=== PATIENT | female | born 1955 | race Caucasian/White ===

== ENCOUNTER → 2024-06-15 | Outpatient (CLI) | payer MEDICARE, MEDICAID, SELFPAY ==
[2024-06-15 11:29] LABS: Basophils # (Auto) 0.1 Thou/mm3 (0.0-0.2); Basophils % (Auto) 1 % (0-2.5); Eosinophils # (Auto) 0.6 Thou/mm3 (0.0-0.5); Eosinophils % (Auto) 9 % (0-10); Hematocrit 34.6 % (36.0-46.0); Hemoglobin 11.3 g/dL (12.0-16.0); Immature Granulocytes % (Auto) 0 % (0-0); Immature Granulocytes Auto 0.02 Thou/mm3 (0.00-0.00); Lymphocytes % (Auto) 31 % (10-50); Mean Corpuscular HGB Conc 32.7 g/dl (31.0-37.0); Mean Corpuscular Volume 92 fL (80-100); Monocytes # (Auto) 0.7 Thou/mm3 (0.0-0.8); Monocytes % (Auto) 12 % (0-12); Neutrophils % (Auto) 47 % (37-80); Nucleated Red Blood Cell % 0 /100 WBC (0); Platelet Count 231 Thou/mm3 (140-440); RDW Standard Deviation 47.3 fL (36.4-46.3); Red Blood Count 3.77 Miln/mm3 (4.00-5.20); White Blood Count 6.4 Thou/mm3 (3.6-11.0)
[2024-06-15 11:58] LABS: Albumin, Serum 4.1 gm/dL (3.4-4.8); Anion Gap 7 (7-16); BUN/Creatinine Ratio 24 Ratio (12-20); Blood Urea Nitrogen 19 mg/dL (9-23); Calcium 9.3 mg/dL (8.3-10.6); Calcium (Corrected) 9.3 mg/dL (8.5-10.1); Carbon Dioxide 28.4 mMol/L (20.0-31.0); Chloride 105 mMol/L (98-107); Creatinine (Component) 0.8 mg/dL (0.6-1.3); Glucose 85 mg/dL (74-106); Osmolality,Calculated 280 (275-295); Phosphorous 3.6 mg/dL (2.4-5.1); Potassium 4.2 mMol/L (3.4-5.1); Sodium 140 mMol/L (136-145); eGFR > 60 See Note
[2024-06-15 12:28] LABS: Vitamin D 25 Hydroxy Total 25.3 ng/mL (7.3-40.2)
== END | disposition home or self-care (01) ==
LOC: COPL 10:03
PROVIDERS: PCP Physician Assistant; Referring Provider Internal Medicine; Visit Provider Internal Medicine
DX: I12.9 Hypertensive chronic kidney disease with stage 1 through stage 4 chronic kidney disease, or unspecified chronic kidney disease (principal); E11.22 Type 2 diabetes mellitus with diabetic chronic kidney disease; N18.2 Chronic kidney disease, stage 2 (mild); N39.0 Urinary tract infection, site not specified; R80.9 Proteinuria, unspecified
CPT/HCPCS: 36415; 80069; 82306; 85025

== ENCOUNTER → 2024-08-15 | Outpatient (CLI) | payer MEDICARE, MEDICAID, SELFPAY ==
--- NOTE | 2024-08-15 16:34 | XR_ITS ---
Examination: CT chest, without intravenous contrast. Sagittal and coronal 2-D reconstructions. Exam date and time: August 15, 2024 [address] chest October 15, 2023 INDICATIONS: Coughing one year, smoking history over 20 years, 2 mm pulmonary nodule right lower lobe on CT chest October 15, 2023 CTDI:vol (mGy) 11.3 DLP: (mGycm) 345 Technique: Multiple 3.0 mm axial sections of the chest to been obtained. Bone and lung density settings are obtained. Sagittal and coronal 2-D reconstructions have been obtained. Low dose protocols were performed. One or more of the following dose reduction techniques were used; automated exposure control, adjustment of the mA and/or KV according to patient size, use of iterative reconstruction technique. Findings: No thoracic aortic aneurysm dilatation Pulmonary artery segments are not enlarged Significant calcification left anterior descending coronary artery Pericardial effusion measuring up to 2 mm Mild enlargement cardiac contour No paratracheal tracheobronchial or bronchopulmonary adenopathy Diffuse moderate pulmonary fibrosis 6 mm pulmonary nodule right upper lobe image 94 3 mm pulmonary nodule right lower lobe image 152 No visualized liver or splenic lesion No pancreatic mass Kidneys partially visualized no hydronephrosis Moderate osteopenia IMPRESSION: Diffuse moderate pulmonary fibrosis 6 mm pulmonary nodule right upper lobe 3 mm pulmonary nodule right lower lobe, recommend continued 6 month follow-up CT chest without contrast
== END | disposition home or self-care (01) ==
LOC: CCTX 16:31
PROVIDERS: PCP Physician Assistant; Referring Provider Physician Assistant; Visit Provider Physician Assistant
DX: J84.10 Pulmonary fibrosis, unspecified (principal); R91.8 Other nonspecific abnormal finding of lung field
CPT/HCPCS: 71250

== ENCOUNTER 2024-12-02 14:04 | Emergency (ER) | payer MEDICARE, MEDICAID, SELFPAY ==
--- NOTE | 2024-12-02 14:13 | EKG_ITS ---
[facility] Test Date: 2024-12-02 Pat Name: JAYDE CHOWDHURY Department: Room: - Gender: Female Pheresis Specialist: : [id number] Requested By: Asaf Phipps Order Number: [id number] Reading MD: Asaf Phipps Measurements Intervals [place] Rate: 71 P: 57 ND: 201 QRS: 32 QRSD: 99 T: 51 QT: 365 QTc: 398 Interpretive Statements SINUS RHYTHM Compared to ECG 07/09/2023 14:44:21 No significant changes /store/S0/[id number].pdf
[2024-12-02 14:27] VITALS: BP 156/88; PULSE 73; RESP 18; TEMP 36.8; O2SAT 97; BMI 32.1
--- NOTE | 2024-12-02 14:33 | XR_ITS ---
Examination: PA lateral chest 2 views TECHNIQUE: Upright PA lateral chest 2 views Date and time: December 02, 2024 1543 hours Comparison August 03, 2023 INDICATIONS: Chest pain coughing 3 days. FINDINGS: Accentuation interstitial markings at the lung bases, consider pulmonary fibrosis, bronchitis, bronchiectasis Normal heart size Ectatic thoracic aorta. No pulmonary edema or lobar pneumonia Prominent osteopenia IMPRESSION: Suspicious for basilar pulmonary fibrosis versus bronchitis bronchiectasis
--- NOTE | 2024-12-02 14:37 | PD.EDCHEST ---
ED Chest Pain RME/HPI General Chief Complaint: Chest Pain Stated Complaint: Right side chest pain X 2 days, radiating Time Seen by Provider: 12/02/24 14:27 Source: patient Arrival date/time: 12/02/24 14:04 69-year-old female with a history of hypertension, hyperlipidemia, type 2 diabetes presents to the emergency room with a chief complaint of right sided sternal chest pain that radiates to her back x 2 days. Patient states she was lifting heavy objects yesterday. Mode of arrival: ambulatory Limitations: no limitations Related Data Home Medications ?Medication ?Instructions ?Recorded ?Confirmed escitalopram oxalate 20 mg tablet 20 mg PO DAILY ##0 08/03/12 09/04/23 atenolol 50 mg tablet 50 mg PO BID 06/14/20 09/04/23 metformin 500 mg tablet 500 mg PO BID 06/14/20 09/04/23 omeprazole 40 mg capsule,delayed 40 mg PO QDAY 06/14/20 09/04/23 release quetiapine 300 mg tablet 600 mg PO HS 06/14/20 09/04/23 vitamin B comp no.3-folic acid 1 1 tab PO QDAY 06/14/20 09/04/23 mg-vit C 60 mg-biotin 300 mcg tablet ([place]) atorvastatin 40 mg tablet 40 mg PO QDAY 09/13/20 09/04/23 zolpidem 10 mg tablet 10 mg PO HS 09/13/20 09/04/23 fenofibrate 54 mg tablet 54 mg PO QDAY 01/03/21 09/04/23 lisinopril 20 mg tablet 20 mg PO QDAY 01/03/21 09/04/23 ondansetron 4 mg disintegrating 4 mg PO Q6H PRN Nausea 01/03/21 09/04/23 tablet aripiprazole 2 mg tablet 2 mg PO QDAY 05/02/21 09/04/23 naratriptan 2.5 mg tablet 2.5 mg PO Q4H PRN Pain 05/02/21 09/04/23 estradiol 0.01% (0.1 mg/gram) 1 appful vaginal QDAY 06/11/23 09/04/23 vaginal cream (Estrace) nitrofurantoin 100 mg PO QDAY 06/11/23 09/04/23 monohydrate/macrocrystals 100 mg capsule (Macrobid) edoxaban 15 mg tablet 15 mg PO QDAY 09/04/23 09/04/23 Previous Rx's ?Medication ?Instructions ?Recorded amoxicillin 875 mg-potassium 1 tab PO BID #14 tabs 07/09/23 clavulanate 125 mg tablet azithromycin 250 mg tablet See Rx Instructions PO .COMPLEX #6 07/09/23 (Zithromax Z-Mann) tabs Allergies Allergy/AdvReac Type Severity Reaction Status Date / Time buspirone Allergy Severe VOMITING Verified 12/02/24 14:12 fluoxetine Allergy Severe HEADACHE Verified 12/02/24 14:12 paroxetine Allergy Severe FELLS Verified 12/02/24 14:12 WORSE ON THE DRUG pseudoephedrine Allergy Severe ANXIETY Verified 12/02/24 14:12 sertraline Allergy Severe VOMITING, Verified 12/02/24 14:12 RASH, HEADACHE sulfamethoxazole Allergy Severe Itching Verified 12/02/24 14:12 trimethoprim Allergy Severe Itching Verified 12/02/24 14:12 Review of Systems Review of Systems Systems Reviewed: All systems reviewed, normal except as documented Constitutional Constitutional: Reports system reviewed and no additional complaints, except as documented, Denies fatigue, Denies fever(s), Denies headache(s) and Denies weakness Eyes Eyes: Reports system reviewed and no additional complaints, except as documented, Denies blurry vision and Denies change in vision ENT Ears, Nose, Mouth, and Throat: Reports system reviewed and no additional complaints, except as documented, Denies otalgia, Denies headache(s), Denies nasal congestion, Denies throat swelling and Denies vertigo Cardiovascular Cardiovascular: Reports system reviewed and no additional complaints, except as documented, Reports chest pain, Reports chest pain at rest, Reports chest pain with activity, Denies dyspnea and Denies dyspnea on exertion Respiratory Respiratory: Reports system reviewed and no additional complaints, except as documented, Denies chest congestion, Denies cough, Denies dyspnea, Denies dyspnea on exertion and Denies wheezing Gastrointestinal Gastrointestinal: Reports system reviewed and no additional complaints, except as documented, Denies abdominal pain, Denies cramping, Denies nausea and Denies vomiting Genitourinary Genitourinary: Reports system reviewed and no additional complaints, except as documented Musculoskeletal Musculoskeletal: Reports system reviewed and no additional complaints, except as documented and Denies back pain Integumentary/Breasts Skin/Breast: Reports system reviewed and no additional complaints, except as documented and Denies wounds Neurologic Neurologic: Reports system reviewed and no additional complaints, except as documented, Denies confusion, Denies headache(s), Denies lack of coordination, Denies vertigo and Denies weakness Psychiatric Psychiatric: Reports system reviewed and no additional complaints, except as documented, Denies anxiety, Denies confusion, Denies depression, Denies paranoia, Denies suicidal ideation and Denies tactile hallucinations Endocrine Endocrine: Reports system reviewed and no additional complaints, except as documented and Denies fatigue Hematologic/Lymphatic Hematologic/Lymphatic: Reports system reviewed and no additional complaints, except as documented and Denies lymphadenopathy Allergic/Immunologic Allergic/Immunologic: Reports system reviewed and no additional complaints, except as documented, Denies throat swelling, Denies urticaria and Denies wheezing Past Medical History Past Medical History NEUROLOGIC: Positive Migraine; Negative Neurological Disorders or Seizures CARDIAC: Positive Cardiac Disorders, Hypercholesterolemia (TAKES MED) and Hypertension (TAKES MED); Negative Congestive Heart Failure, Edema, Cellulitis or Varicose Veins RESPIRATORY: Positive Pneumonia ([facility] 08/2019); Negative Chronic Obstructive Pulmonary Disease (COPD), Asthma, Tuberculosis or Sleep Apnea GASTROINTESTINAL: Positive Gastrointestinal Disorders, Gall Bladder Disease (OPEN) and Gastroesophageal Reflux Disease (TAKES MED); Negative Hepatitis GENITOURINARY: Positive Genitourinary Disorders and Renal Disease (KIDNEY FUNCTION HAS RN CARDIAC CATH) REPRODUCTIVE: Positive Previous Pregnancies (x3) MUSCULOSKELETAL: Positive Musculoskeletal Disorders, Arthritis, Gout and Fractures (BACK) ENDOCRINE: Positive Endocrine Disorders and Diabetes Mellitus Type 2 (TAKES PO MED); Negative Diabetes Mellitus Type 1 HEMATOLOGIC: Positive Blood Disorders and Anemia; Negative Sickle Cell Disease PSYCHO/SOCIAL: Positive Schizophrenia, Bipolar Disorder, Depression (TAKES MED) and Anxiety (TAKES MED) OTHER HISTORY: Positive Hospitalization ([facility] 08/2019), Shingles (1999) and Chicken Pox; Negative Autoimmune Disease, Falls, Blood Transfusions, Blood Transfusion Reaction, Anesthesia Reactions, Chemotherapy, Radiation Therapy, MRSA, Measles, Mumps or Cancer Family History FAMILY HISTORY: Positive Family Respiratory Disorders (MOTHER (COPD)), Family Cardiac Disorders (FATHER (HTN)), Family Cancer (SISTER (LUNG)) and Family Surgery (MOTHER,FATHER,SISTER); Negative Family Psychiatric Problems, Family Gastrointestinal Problems or Family Anesthesia Reaction Surgical History SURGICAL: Positive Angiogram, Tympanostomy Tube (EVA), Hysterectomy (SUSANNA EVA SALPIN) and Tubal Ligation; Negative Pacemaker Social History SMOKING STATUS: Former smoker ED Exam General Limitations: Present no limitations General appearance: Present alert and in no apparent distress Head Head exam: Present atraumatic Eye Eye exam: Present normal appearance, PERRL and EOMI ENT ENT exam: Present normal exam, normal oropharynx and mucous membranes moist Neck Neck exam: Present normal inspection, full ROM and trachea midline Chest Chest inspection: Present normal inspection and symmetric chest wall rise Respiratory Respiratory exam: Present normal lung sounds bilaterally; Absent respiratory distress, wheezes, stridor, accessory muscle use or prolonged expiratory phase Cardiovascular Cardiovascular exam: Present regular rate, normal rhythm, normal heart sounds, +S1 and +S2; Absent bradycardia, tachycardia, irregular rhythm, systolic murmur, diastolic murmur, rubs, gallop, clicks or JVD Abdominal Exam Abdominal exam: Present soft and normal bowel sounds Extremities Exam Extremities exam: Present normal inspection and full ROM Back Exam Back exam: Present normal inspection and full ROM Neurological Exam Neurological exam: Present alert, oriented X3 and CN II-XII intact Psychiatric Psychiatric exam: Present normal affect and normal mood Skin Skin exam: Present warm, dry, intact and normal color Course Quality Measures none Orders Category Date Time Status EKG (ED ONLY) *Do not use* NOW Care 12/02/24 14:13 Completed EKG (ED Only) Stat Exams 12/02/24 14:13 Draft XR chest 2V Stat Exams 12/02/24 14:33 Completed B-Type Natriuretic Peptide Stat Lab 12/02/24 15:08 Received CBC Stat Lab 12/02/24 15:08 Completed Comprehensive Metabolic Panel Stat Lab 12/02/24 15:08 Completed Drug Screen,Urine Stat Lab 12/02/24 14:58 Completed Magnesium Stat Lab 12/02/24 15:08 Completed Partial Thromboplastin Time Stat Lab 12/02/24 15:08 Completed Prothrombin Time with INR Stat Lab 12/02/24 15:08 Completed Troponin I Stat Lab 12/02/24 15:08 Completed Urinalysis Stat Lab 12/02/24 14:58 Received HYDROcodone*/APAP 5/325 [[place] 5/325] Med 12/02/24 15:34 Discontinued 1 tab PO X1 ONE Vital Signs Vital signs: Vital Signs Temperature 98.3 F 12/02/24 14:27 Pulse Rate 73 12/02/24 14:27 Respiratory Rate 18 12/02/24 14:27 Blood Pressure 156/88 H 12/02/24 14:27 Pulse Oximetry (%) 97 12/02/24 14:27 Oxygen Delivery Method Room Air 12/02/24 14:27 Chest Pain MDM Narrative MDM Narrative:: 69-year-old female with a history of pulmonary fibrosis, hypertension, hyperlipidemia, type 2 diabetes presents to the emergency room with a chief complaint of right sided sternal chest pain that radiates to her back x 2 days. Patient states she was lifting heavy objects yesterday. Patient is hemodynamically stable and in no apparent distress Physical examination shows right-sided sternal chest pain. Patient states it is 7 out of 10 in severity and radiates to her back. Patient has a strong and regular rhythm S1 and S2 is noted patient has clear bilateral lung sounds. EKG was completed which shows normal sinus rhythm at [address] deviation. CBC CMP and troponin were within normal limits. Chest x-ray shows pulmonary fibrosis Patient was discharged and educated to follow-up with primary care provider in the next 24 to 48 hours and return to the emergency room for any evidence of worsening signs or symptoms Patient data External records reviewed:: [facility] previous records Clinical information provided by:: patient Social determinants that could affect healthcare access:: none Patient has the following chronic illnesses:: Pulmonary fibrosis, hypertension, hyperlipidemia, type 2 diabetes How is presenting disease/condition affected by chronic disease/condition?: exacerbated by Evaluation data The following diagnostics were reviewed and interpreted by me:: lab results and radiology exam(s) Lab and/or radiology exams considered but not ordered:: Labs and radiology exams considered in order Interpretation Summary: Chest [id number]: Accentuation interstitial markings at the lung bases, consider pulmonary fibrosis, bronchitis, bronchiectasis Normal heart size Ectatic thoracic aorta. No pulmonary edema or lobar pneumonia Prominent osteopenia IMPRESSION: Suspicious for basilar pulmonary fibrosis versus bronchitis bronchiectasis Medications / Prescriptions Medications or Prescriptions considered but not ordered:: No medication given Medication administrations:: Medication Administration History Discontinued Medications Hydrocodone Bitart/Acetaminophen (Hydrocodone/Apap 5/325 Tablet) 1 tab PO X1 ONE Stop: 12/02/24 15:35 Last Admin: 12/02/24 15:42 Dose: 1 tab Documented By: ED No medication given Consultations Consultation(s) initiated? (list below): No Diagnosis Chest Pain Differential Diagnosis: atypical chest pain, st elevation myocardial infarction, costochondritis and chest pain Most likely diagnosis given after review of the tests above:: Chest pain Admission Indicated Admission indicated?: not indicated Admission Request Was there a request for admission?: No Disposition Plan Disposition Plan: Discharge Discharge Attestation Discharge Attestation: The patient and all family members were given an opportunity to ask questions and understood the discharge instructions. Discharge instructions specifically effects, indications for sooner follow up or return to the emergency department, and the expected course of current diagnosis. Patient condition: Stable Discharge Plan Plan Patient Disposition: HOME (Self Care) Discharge Disposition comment: Stable Prescriptions/Referrals Prescriptions/Med Rec: No Action edoxaban 15 mg tablet 15 mg PO QDAY nitrofurantoin monohyd/m-cryst [Macrobid] 100 mg capsule 100 mg PO QDAY Rx Instructions: must administer with a meal/food estradiol [Estrace] 0.01 % (0.1 mg/gram) cream 1 appful vaginal QDAY Rx Instructions: for 14 days escitalopram oxalate 20 MG tablet 20 mg PO DAILY Qty: 0 atorvastatin 40 mg tablet 40 mg PO QDAY Patient Comments: TAKE ONE TABLET BY MOUTH EVERY DAY AT BED TIME FOR CHOLESTEROL zolpidem 10 mg Tablet 10 mg PO HS ondansetron 4 mg Tablet,Disintegrating 4 mg PO Q6H PRN (Reason: Nausea) fenofibrate 54 mg tablet 54 mg PO QDAY lisinopril 20 mg tablet 20 mg PO QDAY naratriptan 2.5 mg Tablet 2.5 mg PO Q4H PRN (Reason: Pain) aripiprazole 2 mg Tablet 2 mg PO QDAY metformin 500 mg Tablet 500 mg PO BID quetiapine 300 mg Tablet 600 mg PO HS Rx Instructions: Q hs omeprazole 40 mg Capsule,Delayed Release(Dr/Ec) 40 mg PO QDAY Rx Instructions: 30 mins before a meal Qdaily atenolol 50 mg Tablet 50 mg PO BID [place] Rx 1-60-300 mg-mg-mcg Tablet 1 tab PO QDAY azithromycin [Zithromax Z-Mann] 250 mg tablet See Rx Instructions .ROUTE .COMPLEX Qty: 6 0RF Rx Instructions: For 250 mg dose pack: take 500 mg today (day 1), then 250 mg for 4 days (days 2-5) amoxicillin-pot clavulanate 875-125 mg tablet 1 tab PO BID Qty: 14 0RF Referrals: No Primary/Family,Physician [Primary Care Provider] - In 1 week Problem List Clinical Impression: Chest pain Patient/Caregiver Discharge Instructions Education Materials: ED Chest Pain, Noncardiac Additional Instructions: Please follow-up with your primary care provider in the next 24 to 48 hours Your x-ray was negative for any acute findings. Your blood work was negative for any acute findings Cardiac examination was within normal limits For any evidence of worsening signs or symptoms return to the emergency room Print Language: Luxembourgish Stand Alone Forms: Geeta Award Info., Patient Portal Info Letter PA/HOP WEIGHER Supervising Physician PA/HOP WEIGHER Supervising Physician: Dr. Guzmán
[2024-12-02 15:11] LABS: Collection Type, Urine Clean Catch
[2024-12-02 15:20] LABS: Basophils # (Auto) 0.1 Thou/mm3 (0.0-0.2); Basophils % (Auto) 1 % (0-2.5); Eosinophils # (Auto) 0.3 Thou/mm3 (0.0-0.5); Eosinophils % (Auto) 4 % (0-10); Hematocrit 34.7 % (36.0-46.0); Hemoglobin 11.5 g/dL (12.0-16.0); Immature Granulocytes Auto 0.01 Thou/mm3 (0.00-0.00); Lymphocytes # (Auto) 2.9 Thou/mm3 (1.0-4.8); Lymphocytes % (Auto) 36 % (10-50); Mean Corpuscular HGB Conc 33.1 g/dl (31.0-37.0); Mean Corpuscular Hemoglobin 31.0 pg (25.0-35.0); Mean Corpuscular Volume 94 fL (80-100); Monocytes # (Auto) 1.0 Thou/mm3 (0.0-0.8); Monocytes % (Auto) 13 % (0-12); Neutrophils # (Auto) 3.8 Thou/mm3 (1.8-7.7); Neutrophils % (Auto) 47 % (37-80); Nucleated Red Blood Cell # 0.00 Thou/mm3 (0.00-0.00); Nucleated Red Blood Cell % 0 /100 WBC (0); Platelet Count 226 Thou/mm3 (140-440); RDW Standard Deviation 47.8 fL (36.4-46.3); Red Blood Count 3.71 Miln/mm3 (4.00-5.20); White Blood Count 8.1 Thou/mm3 (3.6-11.0)
[2024-12-02 15:30] LABS: Bilirubin,Urine Negative (Negative); Blood,Urine Negative (Negative); Clarity,Urine Clear (Clear/Hazy); Color,Urine Lt-Yellow (Lt Yel-Yel); Glucose, Urine Negative (Negative); Ketones,Urine Negative (Negative); Leukocyte Esterase,Urine Negative (Negative); Nitrite,Urine Negative (Negative); PH,Urine 6.0 (5.0-7.0); Protein,Urine Negative (Neg - Trace); RBC,Urine 1 /hpf (0-3); Specific Gravity,Urine 1.009 (1.001-1.035); Squamous Epithelial Cell,Urine 1 /hpf (0-5); Urobilinogen,Urine Negative mg/dL (0.0-1.0); WBC,Urine 1 /hpf (0-5)
[2024-12-02 15:35] LABS: Amphetamine/Methamp Scrn,U Negative (Negative); Barbiturate Screen,Urine Negative (Negative); Benzodiazepines Screen,Urine Negative (Negative); Benzoylecgonine Screen, Ur Negative (Negative); Fentanyl Screen,Urine Negative (Negative); Opiate Screen,Urine Positive (Negative); THC Screen,Urine Negative (Negative)
[2024-12-02 15:36] LABS: INR 1.0 (0.9-1.3); Partial Thromboplastin Time 28.9 Seconds (22.0-36.0); Prothrombin Time 11.4 Seconds (9.0-12.2)
[2024-12-02 15:38] LABS: Alanine Aminotransferase 63 U/L (10-49); Albumin, Serum 4.3 gm/dL (3.4-4.8); Albumin/Globulin Ratio 1.3 (1.2-2.2); Alkaline Phosphatase 181 U/L (46-116); Anion Gap 9 (7-16); Aspartate Amino Transferase 62 U/L (0-34); BUN/Creatinine Ratio 14 Ratio (12-20); Bilirubin,Total 0.4 mg/dL (0.3-1.2); Blood Urea Nitrogen 14 mg/dL (9-23); Calcium 9.1 mg/dL (8.3-10.6); Calcium (Corrected) 9.1 mg/dL (8.5-10.1); Carbon Dioxide 29.3 mMol/L (20.0-31.0); Chloride 100 mMol/L (98-107); Creatinine (Component) 1.0 mg/dL (0.6-1.3); Estimated Creatinine Clearance 48.5 mL/min (>60); Globulin 3.4 gm/dL (2.3-3.5); Glucose 83 mg/dL (74-106); Magnesium 1.3 mg/dL (1.6-2.6); Osmolality,Calculated 275 (275-295); Potassium 3.8 mMol/L (3.4-5.1); Sodium 138 mMol/L (136-145); Total Protein 7.7 gm/dL (5.7-8.2); Troponin I < 0.020 ng/mL (0.0-0.045); eGFR > 60 See Note
[2024-12-02] MEDS: HYDROcodone/APAP 5/325 TABLET 1 TAB PO (15:42)
[2024-12-02 15:58] LABS: B-Type Natriuretic Peptide 83 pg/mL (0-100)
== END 2024-12-02 16:05 | disposition home or self-care (01) ==
PROVIDERS: Nurse Practitioner Family; Emergency Provider Emergency Medicine
DX: R07.2 Precordial pain (principal); R05.9 Cough, unspecified; I10 Essential (primary) hypertension; E78.5 Hyperlipidemia, unspecified; Z87.891 Personal history of nicotine dependence
CPT/HCPCS: 36415; 71046; 80053; 80307; 81001; 83735; 83880; 84484; 85025; 85610; 85730; 93005; 99283; A9270